=== PATIENT | female | born 1955 | race Two or more races ===

== ENCOUNTER 2016-09-29 13:32 | Inpatient (IN) | payer SELFPAY ==
[~2016-09-29] VITALS: Ht 160 cm; Wt 79.1 kg
--- NOTE | ~2016-09-29 | CON ---
PATIENT'S NAME: JOSEPH [facility]BOLD - [facility] AGE: 61 Y [address] ROOM: [place] [address] LOCATION: [facility] [place] ADMIT DATE: 09/29/2016 Consultation DISCHARGE DATE: FAMILY PHYSICIAN: PHYSICIAN, UNKNOWN ATTENDING PHYSICIAN: ELVIS GAMBOA DATE OF CONSULTATION: 10/03/2016 REFERRING PHYSICIAN: Misael Tovar MD HISTORY OF PRESENT ILLNESS: Saw this 61-year-old female in the hospital today. She was complaining of neck pain with right shoulder pain with the neck pain radiating down the right upper extremity to involve all the fingers and the right hand. In addition, she also complains of some burning sensation in the right thigh and she has had this now for a month without any definite precipitating factor and she has the occasional low back pain and she also complained of weakness in the right upper extremity. In addition to the weakness, she also complains of numbness in the right upper extremity involving the entire right upper limb and this has also been going on now for a month. There was no definite history of trauma to precipitate this. She was primarily admitted for abdominal pain and she has had a dose before this. Relevant portion of a past medical history, she is diabetic type 2. She also complains of tingling down the right upper extremity. She has no symptoms on the left side. PAST MEDICAL HISTORY: History of essential hypertension and type 2 diabetes. SOCIAL HISTORY: She stopped smoking 10 years ago. ALLERGIES: NO KNOWN ALLERGIES TO MEDICATION. MEDICATIONS: See the list in the chart. FAMILY HISTORY: Mother is diabetic. PHYSICAL EXAMINATION: GENERAL: On examination in the hospital, this is a 61-year-old lady, who was awake. She is alert. She is very uncomfortable because of the pain in her neck. VITAL SIGNS: She is 5 feet 3 inches tall, 79.1 kg weight. Her blood pressure was 151/91, pulse was 80 was regular, respirations are 20, temperature 98.1. PATIENT'S NAME: JOSEPH [facility] AGE: 61 Y [address] ROOM: [place] [address] LOCATION: [facility] [place] ADMIT DATE: 09/29/2016 Consultation DISCHARGE DATE: FAMILY PHYSICIAN: PHYSICIAN, UNKNOWN ATTENDING PHYSICIAN: ELVIS GAMBOA HEENT: She is normocephalic. NECK: There was tenderness on palpating cervical spinous process about the C6- C7 level. There was restriction of extension of the cervical spine, has no restriction of flexion. There was severe tenderness on palpating the trapezius muscle on the right side. No tenderness on the left. There were no masses palpable in the neck. No bruits audible in the neck. CHEST: Clear. HEART: Heart rate was regular. The heart sounds were normal. ABDOMEN: Soft. No area of tenderness. Bowel sounds were normal. NEUROLOGIC: The cranial nerve examination was normal. The motor examination showed weakness of the right hand vmware administrator. The sensory exam shows decreased sensation on the right side, not restricted to any definite dermatomal pattern. In the right lower limb, there was decreased sensation in the lateral aspect of the right thigh as well as the medial aspect of the right leg. Reflexes were diminished in the upper extremity 1+ on either side but symmetrical in the lower extremities. I could not get any reflexes. The knee jerks and the ankle jerks were absent. Toes were downgoing. BACK: There was no tenderness on palpating the lumbar spinous processes and the SI joints. IMAGING: I reviewed the MRI of the cervical spine, which was done, it shows evidence of severe cervical spinal stenosis from C2-C7 and extremity examination, there was tenderness on palpating the anterior aspect of the right shoulder. There was also pain with abduction, flexion, and extension of the right shoulder. IMPRESSION: 1. Cervical radiculopathy. It is difficult to be sure what nerve roots specifically are involved. My thought will be probably the C6 and C7 nerve roots on the right side. In addition to that, I think she might have osteoarthritis of the right shoulder or some form of entrapment syndrome in the right shoulder. 2. She may have carpal tunnel syndrome on the right side as well as the Tinel sign was positive at the wrist on the right side and she has cervical spinal stenosis at C2-C7. She will definitely need to have a spinal canal decompressed and the weakness that she is having especially the hand vmware administrator may be related to stenosis of the spinal canal. I did not see any evidence of myelomalacia on reviewing the MRI of the cervical spinal canal. My recommendation here is that we should get EMG nerve conduction studies done on her to see if she has any electrophysiological evidence of nerve root compression. This will assist us in deciding whether to go from the front or behind if there is evidence of a radiculopathy, then she may benefit more as I was going from in front and decompressing the nerve root and also distracting the disk space that was creating more room from front. The other alternative here would be to go ahead and for sure do a decompressive cervical laminectomy from C2 to C7 PATIENT'S NAME: MONIQUE RUIZ [facility] AGE: 61 Y [address] ROOM: [id number] [place], [place] [address] LOCATION: [facility] [place] ADMIT DATE: 09/29/2016 Consultation DISCHARGE DATE: FAMILY PHYSICIAN: PHYSICIAN, UNKNOWN ATTENDING PHYSICIAN: ELVIS GAMBOA and it is also possible that doing this, we could also decompress the nerve root on the right side by doing a foraminotomy on the right. This was explained to her through the receiver stocker along with the procedures and the possible complications that can occur with either procedure. For now, we will see what the EMG studies show. I also took the liberty to have Dr. Alvarenga see her for a right shoulder. MD JOSHUA OJEDA/farrah /[id number] d: 10/03/162018 t: 10/12/16 1205, CONSULTATION REPORT
--- NOTE | ~2016-09-29 | OR ---
PATIENT'S NAME: MONIQUE RUZI [facility] AGE: 61 Y [address] ROOM: [place] [address] [place] [facility] [place]: 09/29/2016 OR/Procedure Report DISCHARGE DATE: FAMILY PHYSICIAN: PHYSICIAN, UNKNOWN ATTENDING PHYSICIAN: ELVIS GAMBOA SURGEON: Esteban Davidson MD LEMON PICKER: DATE OF PROCEDURE: 09/30/2016 ADDENDUM: Procedure performed is around 12:30 p.m. in the morning. This is an addendum to the procedure report from [facility]. The patient's CBD was freely cannulated at the first attempt within seconds. There was incidental retrograde filling of the pancreatic duct. The pancreatic duct was not cannulated or injected by intent. The pancreatic duct appeared to be normal. The CBD was significantly dilated but did not appear to have any filling defects. However in view of the significant dilation and pain, sphincterotomy and CBD clearance done. ESTEBAN DAVIDSON MD AAN/modl /[id number] d: 10/01/16 0444 t: 10/01/16 1646, OPERATIVE SUMMARY
--- NOTE | ~2016-09-29 | HP ---
PATIENT'S NAME: JOSEPH [facility] AGE: 61 Y [address] ROOM: [place] [address] LOCATION: [facility] [place] ADMIT DATE: 09/29/2016 History & Physical DISCHARGE DATE: FAMILY PHYSICIAN: PHYSICIAN, UNKNOWN ATTENDING PHYSICIAN: ELVIS GAMBOA DATE OF SERVICE: CHIEF COMPLAINT: Abdominal pain. HISTORY OF PRESENT ILLNESS: A 61-year-old lady with a past medical history of essential hypertension, type 2 diabetes, appendectomy, as well as cholecystectomy, who presented to the emergency department today with a right upper quadrant pain which has been going on for weeks now, cannot characterize the pain, present all the time, elevated with food intake, progressively got worse associated with nausea, but no episode of emesis. She denied having any fever or chills. She also complained of having pain in her shoulder as well. She denied any shortness of breath, any PND, or any dyspnea. She endorsed having constipation and difficulty urination, but denied having any burning on urination. REVIEW OF SYSTEMS: All other systems reviewed and were negative except what is mentioned in the HPI. ALLERGIES: NO KNOWN DRUG ALLERGIES. PAST MEDICAL HISTORY: Essential hypertension and type 2 diabetes. MEDICATIONS: Please see MAR. SOCIAL HISTORY: Quit smoking 10 years ago. FAMILY HISTORY: Mother had diabetes. PHYSICAL EXAMINATION: VITAL SIGNS: Blood pressure 125/76, 89, 19, 96, afebrile. GENERAL: No acute distress. Alert, oriented x3. HEENT: Head: Atraumatic, normocephalic. Eyes: Nonicteric. No pallor. PATIENT'S NAME: JOSEPH [facility] AGE: 61 Y [address] ROOM: [address] [address] LOCATION: [facility] [place] ADMIT DATE: 09/29/2016 History & Physical DISCHARGE DATE: FAMILY PHYSICIAN: PHYSICIAN, UNKNOWN ATTENDING PHYSICIAN: ELVIS GAMBOA Oropharynx: Dry mucous membranes. CARDIOVASCULAR: S1 and S2. No murmurs, gallops, or rubs. LUNGS: Clear to auscultation bilaterally. ABDOMEN: Soft, tender in the right upper quadrant. Bowel sounds are present. No rebound tenderness or guarding noted. EXTREMITIES: No clubbing, cyanosis, or edema. NEUROLOGIC: Cranial nerves 2 through 12 intact. No motor or sensory deficit. PSYCH: Normal affect, mood, and speech. SKIN: No bruises or rashes noted. MUSCULOSKELETAL: No muscle tenderness or swelling noted. DIAGNOSTIC DATA: CAT scan done in the emergency department per verbal report showed some biliary dilatation. I do not have exact measurement at this point. Lab work in the emergency department showed 2 sets of negative troponins. Lactate was 2.3. CBC was unremarkable. BMP showed potassium of 3.6, alkaline phosphatase is elevated at 156, AST and ALT 66 and 70, bilirubin was normal. UA was not impressive for any urinary tract infection. ASSESSMENT AND PLAN: 1. Biliary obstruction. 2. Essential hypertension. 3. Type 2 diabetes mellitus. 4. Hypokalemia. We are going to admit this patient to the PCU. MRCP will be ordered. She is going to be n.p.o. Intravenous volume resuscitation. Based on the results of the MRCP, GI consultation will be made. We will repeat the labs in the morning. Pain control. Sliding scale insulin for diabetes control and IV antihypertensives if needed. The patient is full code. MD KENIA VERGARA/farrah /[id number] D: T: 514 HISTORY & PHYSICAL
--- NOTE | ~2016-09-29 | CON ---
PATIENT'S NAME: MONIQUE RUIZ [facility] AGE: 61 Y [address] ROOM: [place] [address] LOCATION: [facility] [place] ADMIT DATE: 09/29/2016 Consultation DISCHARGE DATE: FAMILY PHYSICIAN: PHYSICIAN, UNKNOWN ATTENDING PHYSICIAN: ELVIS GAMBOA DATE OF CONSULTATION: 09/30/2016 REFERRING PHYSICIAN: Esteban Davidson MD REASON FOR CONSULTATION: Possible biliary obstruction and dilated CBD. HISTORY OF PRESENT ILLNESS: This is a very pleasant, Algerian-speaking 61-year-old female, who was seen utilizing the electrical systems drafter language line. The patient has a past medical history of essential hypertension, type 2 diabetes, as well as a cholecystectomy in 2013. She states that over the past 3 to 4 weeks, she began having significant right upper quadrant pain as well as generalized discomfort on her right side. She does state that she had associated nausea with this. Denies any vomiting, fever, or chills. She does recall having stones within her gallbladder at the time of removal. She denies any shortness of breath, chest pain, chest pressure, urinary symptoms, or change in bowel habits. PAST MEDICAL HISTORY: Essential hypertension and type 2 diabetes. PAST SURGICAL HISTORY: Cholecystectomy, appendectomy, and back surgery in 2009. SOCIAL HISTORY: The patient quit smoking approximately 10 years ago. She denies any alcohol use. FAMILY HISTORY: The patient's mother has diabetes. Sister has brain cancer and another sister has liver cancer. She also endorses that her mother had liver cirrhosis and cancer of unknown type. ALLERGIES: NO KNOWN MEDICATION ALLERGIES. CURRENT MEDICATIONS: Please refer to the medication administration record. PATIENT'S NAME: MONIQUE RUIZ [facility] AGE: 61 Y [address] ROOM: [place] [id number] LOCATION: [facility] [place] ADMIT DATE: 09/29/2016 Consultation DISCHARGE DATE: FAMILY PHYSICIAN: PHYSICIAN, UNKNOWN ATTENDING PHYSICIAN: ELVIS GAMBOA A REVIEW OF SYSTEMS: A 10-point review of systems was completed. All were negative except for those identified in the history of present illness. PHYSICAL EXAMINATION: GENERAL: A very pleasant 61-year-old female, sitting in the chair, who appears to be in no acute distress. VITAL SIGNS: Temperature 97.9, pulse is 72, respirations of 18, blood pressure 149/84, and oxygen saturation is 96% on room air. SKIN: [place], warm, and dry. No jaundice. HEENT: Head is normocephalic and atraumatic. Pupils are equal, round, and reactive to light. Sclerae are clear. Nonicteric. Oral mucosa is pink and moist. No thyromegaly. NECK: Soft and supple. CARDIOVASCULAR: Regular normal S1, S2. RESPIRATORY: Respirations even and unlabored. LUNGS: Clear to auscultation. ABDOMEN: Soft, round, tender in the right upper quadrant with palpation as well as the right lower quadrant. No rebound, rigidity, or guarding noted. Bowel sounds positive x4 quadrants. MUSCULOSKELETAL: No muscle weakness or atrophy. EXTREMITIES: No clubbing, cyanosis, or edema. NEUROLOGICAL: Nonfocal. LABS AND DIAGNOSTICS: Lactate on admission was 2.3. Cardiac enzymes have all been within normal limits. CBC includes a white blood cell count of 4.5, hemoglobin of 13.8, hematocrit of 38.6, and platelets of 155. Chemistry panel includes a glucose of 148, BUN of 12, creatinine 0.5, sodium of 141, potassium 3.7, chloride 106, CO2 of 26, albumin of 3.5. AST elevated on admission at 70 and now 63, ALT was 66 and now 59, alkaline phosphatase was elevated at 156 now 112, total bilirubin is 0.9. Hemoglobin A1c is 8.2. Protime 10.8, INR is 1.0. PTT of 26. Lipase was 181. She also underwent a CT abdomen and pelvis on admission. This did show a dilated common bile duct at 13 mm with no definitive intraductal filling defect identified, fatty infiltration of the liver, cholecystectomy, bilateral renal cysts as well as suspected constipation. MRCP is pending at this time. ASSESSMENT AND PLAN: Again this is a very pleasant, 61-year-old Algerian-speaking female, who was admitted with approximate 3-week complaint of right upper quadrant discomfort. The patient is post cholecystectomy with known stones per her recollection. Her ALT was slightly elevated on admission, as well. At this time, a CT did show a dilated common bile duct with no definitive intraductal filling PATIENT'S NAME: MONIQUE RUIZ [facility] AGE: 61 Y [address] ROOM: [id number] [place], [place] [address] LOCATION: [facility] [place] ADMIT DATE: 09/29/2016 Consultation DISCHARGE DATE: FAMILY PHYSICIAN: PHYSICIAN, UNKNOWN ATTENDING PHYSICIAN: ELVIS GAMBOA. The patient has undergone an MRCP. As the results are pending at this time, the patient will be kept n.p.o. in preparation for review of MRCP with possible ERCP later today. This was discussed again with the patient and she verbalizes understanding. Further recommendations to be given status post results of MRCP. Thank you for this consult and allowing us to participate in the care of this patient. We will continue to monitor, evaluate, and treat as appropriate. MAN MANLEY APRN FOR ESTEBAN DAVIDSON MD MMF/modl /[id number] d: 09/30/16 1520 t: 10/07/16 1644, CONSULTATION REPORT
--- NOTE | ~2016-09-29 | NDGEN ---
PATIENT'S NAME: MONIQUE RUIZ [facility] AGE: 61 Y [address] ROOM: [address] [address] LOCATION: [facility] [place] ADMIT DATE: 09/29/2016 Neurodiagnostics DISCHARGE DATE: FAMILY PHYSICIAN: PHYSICIAN, UNKNOWN ATTENDING PHYSICIAN: ELVIS GAMBOA PROCEDURE: EMG NERVE CONDUCTION STUDY OF THE BILATERAL UPPER EXTREMITIES. DATE OF PROCEDURE: 10/04/2016 REQUESTING PHYSICIAN: Dr. Nicholson, neurosurgeon. FINDINGS: This is a 61-year-old female patient who has pain in the right upper extremity with particular focal pain at the area of the glenohumeral joint region where she has some exquisite tenderness to touch. She has limitation in movement of the arm in general. It was believed that she may have C7 radiculopathy that would involve weakness of the triceps and extensor muscles of the forearm. Furthermore, this nerve conduction study was done to rule out any evidence of median neuropathy at both wrists or any focal neuropathy of the bilateral upper extremities. Nerve conduction studies were performed stimulating the left and right median and ulnar nerves as well as the sensory median and ulnar nerves. The motor and nerve conduction studies revealed normal motor onset latencies, durations, and amplitudes as well as nerve conduction velocities in the median and ulnar nerves. In the sensory nerve conduction studies, there was normal peak onset latencies, amplitudes, as well as nerve conduction velocities. The F-wave studies of the median and ulnar nerves in the upper extremities were also within normal limits. Next, the needle EMG was placed into the right upper extremity muscles including deltoid, extensor carpi radialis, pronator teres, abductor digiti minimi, abductor pollicis brevis, first dorsal interossei muscle, biceps brachii, and triceps brachii as well as the cervical paraspinal muscles, particularly around the C6-C7 region. In the needle EMG, there was no evidence of any abnormal spontaneous electrical activity such as fibrillation potentials or positive sharp waves. On voluntary recruitment of the muscles just mentioned, there was normal motor unit action potential recruitment pattern; however, there was some diminished activation of these muscles due to the patient having some general pain at the glenohumeral joint. The motor units were showing normal sizes with no evidence of any polyphasia. IMPRESSION: The nerve conduction studies of the bilateral upper extremities were within normal limits. Needle EMG of the right upper extremity did not PATIENT'S NAME: MONIQUE RUIZ [facility] AGE: 61 Y [address] ROOM: [address] [address] LOCATION: [facility] [place] ADMIT DATE: 09/29/2016 Neurodiagnostics DISCHARGE DATE: FAMILY PHYSICIAN: PHYSICIAN, UNKNOWN ATTENDING PHYSICIAN: ELVIS GAMOBA reveal evidence to support cervical radiculopathy. There was diminished activation of the muscles tested. This was due to the subject's pain at the area of the shoulder, particularly at the area of the glenohumeral joint below the clavicle. This did not limit testing, and we were able to get a good study that revealed normal recruitment of motor unit action potential for the applied force. MD WILBER KNIGHT/farrah /[id number] dtt: 10/22/16 1315 , CLAYTON OWEN dtd: 10/04/16 1706
--- NOTE | ~2016-09-29 | ER ---
PATIENT'S NAME: [facility]SEPH [facility] AGE: 61 Y [address] ROOM: [place] [address] [place] [facility] [place]: 09/29/2016 ER/Outpatient Report DISCHARGE DATE: FAMILY PHYSICIAN: PHYSICIAN, UNKNOWN ATTENDING PHYSICIAN: ELVIS GONZALEZ Time of Arrival: 1332 hours. Time of Evaluation: 1338 hours. CHIEF COMPLAINT: Right upper quadrant abdominal pain. HISTORY OF PRESENT ILLNESS: The patient is a 61-year-old female, who presents to the emergency department today with chief complaint of right upper quadrant abdominal pain. She reports this started 24 hours prior to arrival. The patient is a Portuguese- speaking patient, MARTTI was used for interpretation. Pain is increased today. She took some Tylenol without any relief. She does report some nausea with no vomiting. Does report some shortness of breath. Denies any diaphoresis. Has had some decreased appetite. Does have increased pain with food. It is a stabbing type pain, currently 9/10 in severity. PAST MEDICAL HISTORY: [id number] diabetes, hypertension, and dyslipidemia. PAST SURGICAL HISTORY: Appendectomy, back surgery, and cholecystectomy. SOCIAL HISTORY: The patient denies any tobacco, alcohol, or illicit drug use. ALLERGIES: NO KNOWN DRUG ALLERGIES. MEDICATIONS: Please see list. PRIMARY CARE DOCTOR: [facility]. REVIEW OF SYSTEMS: All systems are reviewed by myself and are negative with the exception of those discussed in the HPI and past medical history. PHYSICAL EXAMINATION: PATIENT'S NAME: [facility]PH [facility] AGE: 61 Y [address] ROOM: [place] [id number] [place] [facility] [place]: 09/29/2016 ER/Outpatient Report DISCHARGE DATE: FAMILY PHYSICIAN: PHYSICIAN, UNKNOWN ATTENDING PHYSICIAN: ELVIS GONZALEZ VITAL SIGNS: Weight 79.1 kg. Blood pressure 180/100, pulse 89, respiratory rate 19, temperature 98.3, and oxygen saturation 96% on room air. GENERAL: The patient is a 61-year-old female, who appears at her stated age, in mild acute distress secondary to right upper quadrant abdominal pain. HEENT: Normocephalic, atraumatic. Pupils are equal, round, and reactive to light and accommodation. Extraocular motions are intact. Nares are patent bilaterally. TMs are clear. Oropharynx is clear. NECK: Supple. There is no nuchal rigidity. CARDIOVASCULAR: Regular rate and rhythm. No murmurs, rubs, or gallops. LUNGS: Clear to auscultation bilaterally. No wheezes, rales, or rhonchi. ABDOMEN: Soft with moderate right upper quadrant tenderness to palpation. There is voluntary guarding. There is no rebound or rigidity. Positive bowel sounds. MUSCULOSKELETAL: The patient moves all 4 extremities. SKIN: Warm and dry. There are no rashes or lesions noted. LABORATORY DATA AND X-RAYS: CBC is unremarkable. Coags are normal. Lipase is normal. Urinalysis shows 25 leukocyte esterase; 30 protein; 100 glucose; 4 urobilinogen; 25 blood; 0 to 2 wbc's, rbc's, and epithelials. Lactase is 2.3. EKG is obtained, it is interpreted by myself and shows sinus rhythm with a rate of 84, normal axis, normal interval. No ST elevation, ST depression, or T-wave inversions. CMP is unremarkable except for potassium 3.6, glucose 212, alkaline phosphatase 156, AST is 70, ALT is normal. Cardiac enzymes are normal. Procalcitonin is normal. CT scan of the abdomen and pelvis with IV contrast was obtained. I have discussed results with the radiologist, which does show a common bile duct dilatation. There is no obvious stone in the duct. There is some mild constipation. There is no other acute process noted. IMPRESSION: 1. Acute biliary obstruction with dilation of the common bile duct. 2. Mild constipation. 3. Type 2 diabetes mellitus. 4. Initial visit. EMERGENCY DEPARTMENT COURSE: The patient is brought back to the examination room. Seen and evaluated by myself. IV is established. Laboratory analysis and imaging are obtained as described above. The patient is given Zofran 4 mg. She is given multiple aliquots of 2 mg of morphine IV. She is also given 40 mg of Protonix IV and a GI cocktail. She is given a liter of normal saline. I have discussed results with the patient. I would recommend admission to the hospital for further evaluation, treatment, and management. I have contacted Dr. Gonzalez with Hospitalist Service. He had seen and evaluated the patient down here in the Emergency Department and did order the Protonix and a GI cocktail. I have PATIENT'S NAME: MONIQUE RUIZ [facility] AGE: 61 Y [address] ROOM: [place] [address] [place] [facility] [place]: 09/29/2016 ER/Outpatient Report DISCHARGE DATE: FAMILY PHYSICIAN: PHYSICIAN, UNKNOWN ATTENDING PHYSICIAN: ELVIS GONZALEZ also discussed the case with Dr. Tovar with GI; he has recommended MRCP. I have discussed this with Dr. Gonzalez. DISPOSITION: The patient is admitted under the care of Hospitalist Service, Dr. Gonzalez in stable condition. DO BLADIMIR VALDES/modl /[id number] d: 09/30/16 0930 t: 10/01/16 0755, OUTPATIENT REPORT
--- NOTE | ~2016-09-29 | CON ---
PATIENT'S NAME: JOSEPH [facility] AGE: 61 Y [address] ROOM: [place] [address] LOCATION: [facility] [place] ADMIT DATE: 09/29/2016 Consultation DISCHARGE DATE: 10/04/2016 FAMILY PHYSICIAN: Physician, Unknown ATTENDING PHYSICIAN: Bina Gonzalez DATE OF CONSULTATION: 10/03/2016 REFERRING PHYSICIAN: Misael Tovar MD The patient was seen and examined on October 03, 2016. CHIEF COMPLAINT: Right shoulder pain. HISTORY OF PRESENT ILLNESS: This 61-year-old female was referred for evaluation by Dr. Nicholson because of right shoulder pain. Pain is dull and achy, it has bothered her for about a month, radiates out of the deltoid. She also has some neck problems, has some bulging disks and arthritis in her neck, has been followed by Dr. Nicholson. She has also been recovering from biliary obstruction, mild constipation, and diabetes. She has never had surgery, fracture, or infection in the shoulder. Keeps her up at night, hurts to reach. She says it feels weaker and she has lost some motion in it. Tylenol helps the pain. She denies radicular symptoms in her arm. No numbness or tingling. PAST MEDICAL HISTORY: Type 2 diabetes and hypertension. PAST SURGICAL HISTORY: Cholecystectomy, appendectomy, and lumbar spine surgery. MEDICATIONS: 1. Cozaar. 2. Glucophage. 3. Levemir insulin. 4. Mevacor. 5. Neurontin. 6. Xanax. ALLERGIES: NONE. SOCIAL HISTORY: Quit smoking 10 years ago. No alcohol use. PATIENT'S NAME: JOSEPH [facility] AGE: 61 Y [address] ROOM: [place] [id number] LOCATION: [facility] [place] ADMIT DATE: 09/29/2016 Consultation DISCHARGE DATE: 10/04/2016 FAMILY PHYSICIAN: Physician, Unknown ATTENDING PHYSICIAN: Bina Gonzalez FAMILY HISTORY: Mother with diabetes. Sister with brain cancer and another sister with liver cancer. History of liver cirrhosis and cancer in mother. REVIEW OF SYSTEMS: Constipation. No coughs, colds, fevers, chills, or sore throat. No chest pain, shortness of breath, or trouble with breathing. No nausea. Occasional vomiting. No dysuria or hematuria. No malaise. No skin or neurologic changes. PHYSICAL EXAMINATION: GENERAL: She is awake, alert, and oriented x3. Mood and affect appropriate. She is sitting in a chair. VITAL SIGNS: Temperature 98, pulse 74, respirations 18, blood pressure 149/82, and O2 saturations 96% on room air. HEENT: Atraumatic and normocephalic. PERRL. EOMI. TMs clear. Throat clear. NECK: Supple. CHEST: Clear to auscultation. HEART: Regular rhythm. ABDOMEN: Soft. Mildly tender. Normoactive bowel sounds. EXTREMITIES: Right shoulder is tender at the AC and subacromial area. There is positive impingement sign. Slight prominence of the AC joint. She abducts and flexes 140 degrees. Externally and internally rotates 70 degrees with pain. She is a little weak in abduction and flexion related the pain. There is no warmth or redness, but a trace of swelling. No ecchymosis. Neck moves well. Spurling sign is negative. She is tender in the cervical spine, has some pain with neck movement. She has good pulses and good reflexes. DIAGNOSTIC DATA: X-rays of her right shoulder AP, lateral, and oblique view show an intact glenohumeral joint without fractures or degenerative changes. Joint space is well preserved. AC joint shows sclerosis and osteophytes. Diagnosis; acromioclavicular arthritis, right shoulder. IMPRESSION: 1. Impingement of acromioclavicular arthritis, possible small cuff tear of right shoulder with fairly good motion, quite painful. 2. Hypertension. 3. Insulin-dependent diabetes. 4. Dyslipidemia. 5. Abdominal pain. PATIENT'S NAME: MONIQUE RUIZ [facility] AGE: 61 Y [address] ROOM: [place] [address] LOCATION: [facility] [place] ADMIT DATE: 09/29/2016 Consultation DISCHARGE DATE: 10/04/2016 FAMILY PHYSICIAN: Physician, Unknown ATTENDING PHYSICIAN: Bina Gonzalez PLAN: Her risks and benefits discussed. Right shoulder was injected into the subacromial space and glenohumeral joint with 80 mg Depo-Medrol, 5 mL of lidocaine. She was given exercises. We will follow her along. Encourage movement of the shoulder. MD DONN NIEVES/farrah /[id number] d: 10/04/168 t: 10/09/16 1025, CONSULTATION REPORT
--- NOTE | ~2016-09-29 | DS ---
PATIENT'S NAME: MONIQUE RUIZ [facility] AGE: 61 Y [address] ROOM: [id number] [place], [place] [address] LOCATION: [facility] [place] ADMIT DATE: 09/29/2016 Discharge Summary DISCHARGE DATE: FAMILY PHYSICIAN: Physician, Unknown ATTENDING PHYSICIAN: Bina Gonzalez PRINCIPAL DIAGNOSES: 1. Biliary dilatation. 2. Degenerative joint disease of C-spine, complicated by pain in the neck. 3. Osteoarthritis of shoulder and hands. 4. Type 2 diabetes mellitus, uncontrolled. 5. Hypertension. HOSPITAL COURSE: A 61-year-old lady with a past medical history of essential hypertension as well as type 2 diabetes non-insulin, glipizide and metformin control. She was admitted to the hospital with abdominal pain. On initial evaluation, a CAT scan was done, which did show evidence of biliary dilatation which was followed by MRCP. It did not show any stone, but did show evidence of liver cirrhosis. GI consultation was made and the patient was taken for ERCP with no stone, but the biliary stent was placed. Her lab on initial admission to the hospital were normal including hepatic function and which remained normal during the course of the hospitalization. Her abdominal pain improved, but she kept complaining of the pain in her right shoulder as well as the right arm. Cervical spine CT scan was obtained, which did show extensive degenerative joint disease. Neurosurgical consultation was made and an MRI was also done. Neurosurgery evaluated the patient and ordered an EMG, which returned negative. They think that she will need surgery down the road and wanted her to see back in 2 weeks in the clinic. Orthopedic consultation was made and right shoulder was injected with lidocaine as well as steroids. She was started on Celebrex to control the pain. In addition to that, we also started on gabapentin 200 mg t.i.d., which was then titrated up to 400 mg t.i.d. on discharge. Her blood glucose level has been uncontrolled in the hospital despite using Levemir. She will be discharged on glipizide 10 mg and metformin. She will need to follow up with the primary care physician for that followup. DISCHARGE MEDICATION: Include: 1. Alprazolam 0.5 mg p.o. twice daily. 2. Celebrex 200 mg p.o. twice daily. 3. Gabapentin 400 mg p.o. 3 times daily. 4. Losartan potassium 25 mg p.o. every day. 5. Lovastatin 20 mg p.o. every night at bedtime. 6. Metformin 500 mg p.o. twice daily. ACTIVITY: As tolerated. PATIENT'S NAME: MONIQUE RUIZ [facility] AGE: 61 Y [address] ROOM: [place] [address] LOCATION: [facility] [place] ADMIT DATE: 09/29/2016 Discharge Summary DISCHARGE DATE: FAMILY PHYSICIAN: Physician, Unknown ATTENDING PHYSICIAN: Bina Gonzalez DIET: Diabetic diet. FOLLOWUP: 1. Follow up with Dr. Tovar in 2 weeks for ERCP and stent removal. 2. Follow up with Dr. Nicholson in Neurosurgery Clinic in 2 weeks. She needs to follow up with primary care physician in 1 week with a BMP. I spent 40 minutes in discharge planning of this patient. MD KENIA VERGARA/farrah /[id number] d: 10/04/16 1241 t: 10/13/16 1949, DISCHARGE SUMMARY
[2016-09-29 14:04] LABS: BASOPHIL % 0.7 %; EOSINOPHIL # 0.1 K/uL (0.0-0.5); EOSINOPHIL % 1.3 %; HEMATOCRIT 42.7 % (33.0-46.0); HEMOGLOBIN 15.6 g/dL (10.0-15.0); IMMATURE GRANULOCYTE % 0.2 %; LYMPHOCYTE # 1.4 K/uL (0.8-4.0); LYMPHOCYTE % 26.1 %; MCH 31.6 pg (27.0-34.0); MCHC 36.5 gm/dL (32.0-36.5); MCV 86.6 fl (83.0-98.0); MONOCYTE # 0.5 K/uL (0.0-1.0); MONOCYTE % 9.1 %; MPV 10.4 fl (9.4-12.4); NEUTROPHIL # (ANC) 3.5 K/uL (1.8-7.8); NEUTROPHIL % 62.6 %; NRBC % 0 /100WBC (0-0.00); PLATELET COUNT 175 K/uL (150-450); RBC 4.93 M/uL (3.50-5.50); RDW-CV 12.9 % (11.9-14.6); WBC 5.5 K/uL (4.0-11.0)
[2016-09-29 14:08] LABS: BILIRUBIN URINE NEGATIVE (NEGATIVE); BLOOD URINE 25 /UL (NEGATIVE); COLOR URINE YELLOW (YELLOW); GLUCOSE URINE 100 mg/dL (NEGATIVE); KETONE URINE NEGATIVE (NEGATIVE); LEUKOCYTES URINE 25 /UL (NEGATIVE); NITRITE URINE NEGATIVE (NEGATIVE); PH URINE 6.5 (4.0-8.0); PROTEIN URINE 30 mg/dL (NEGATIVE); SPEC GRAVITY URINE 1.015 (1.003-1.035); TURBIDITY URINE CLEAR (CLEAR); UROBILINOGEN URINE 4 mg/dL (NORMAL)
[2016-09-29 14:16] LABS: PROTIME 10.8 SECONDS (9.6-11.1); PTT 26 SECONDS (25-32)
[2016-09-29 14:21] LABS: BACTERIA URINE RARE (NEGATIVE); EPITHELIAL URINE 0-2 #/HPF (NEGATIVE); MUCUS URINE 1+ (NEGATIVE); RBC URINE 0-2 #/HPF (NEGATIVE); WBC URINE 0-2 #/HPF (NEGATIVE)
[2016-09-29 14:32] LABS: ALBUMIN 4.2 gm/dL (3.5-5.0); ALK PHOS 156 IU/L (33-138); ALT 66 IU/L (12-78); ANION GAP 13.6 (10.0-19.0); AST 70 IU/L (10-40); BLOOD UREA NITROGEN 13 mg/dL (6-24); CALCIUM 8.8 mg/dL (8.5-10.5); CHLORIDE 104 mMol/L (96-110); CO2 25 mMol/L (22-32); CPK 164 IU/L (21-215); CREATININE 0.7 mg/dL (0.5-1.1); ESTIMATED GFR (MDRD EQUATION) > 60; MAGNESIUM 1.9 mg/dL (1.3-2.6); POTASSIUM 3.6 mMol/L (3.7-5.1); SODIUM 139 mMol/L (135-145); TOTAL BILIRUBIN 0.9 mg/dL (0.0-1.5); TOTAL PROTEIN 8.3 g/dL (6.0-8.4)
[2016-09-29 16:19] LABS: CPK 122 IU/L (21-215)
--- NOTE | 2016-09-30 00:44 | NUR ---
SIGNIFICANT EVENT: Patient alert & oriented. Hypertensive (upper 140's to 150's over 80's to 90's). Other VSS on RA. Morphine given in ER and again x1, last at 0045 for Abd pain. 1PA to BR. PIV to L) hand infusing LR at 125. MRCP this morning to determine presence/absence of stones, NPO since MN. ACHS accucheck - mild SS insulin. No coverage for HS BG of 134. Syriac speaking only - language line in room. Pleasant and cooperative with cares.
--- NOTE | 2016-09-30 02:00 | NUR ---
Patient is 61 year old female admitted for severe R) upper quadrant pain - started yesterday. ER started PIV to L) hand. 1 liter bolus of fluids in ER, LR started by ER - running at at 125. Full code. Burkinan speaking only - knows very little Frisian, Gwyn for admission assessment and Language line at bedside. MRCP scheduled for a.m. to determine presence/absence of stones. Diabetic - takes glipizide at home. Hx of back surgery and kimi, appendectomy, essential hypertension.
[2016-09-30 05:58] LABS: BASOPHIL % 0.4 %; EOSINOPHIL # 0.1 K/uL (0.0-0.5); EOSINOPHIL % 1.6 %; HEMATOCRIT 38.6 % (33.0-46.0); HEMOGLOBIN 13.8 g/dL (10.0-15.0); IMMATURE GRANULOCYTE % 0.2 %; LYMPHOCYTE # 1.2 K/uL (0.8-4.0); LYMPHOCYTE % 26.3 %; MCH 31.4 pg (27.0-34.0); MCHC 35.8 gm/dL (32.0-36.5); MCV 87.7 fl (83.0-98.0); MONOCYTE # 0.5 K/uL (0.0-1.0); MONOCYTE % 11.2 %; MPV 10.2 fl (9.4-12.4); NEUTROPHIL # (ANC) 2.7 K/uL (1.8-7.8); NEUTROPHIL % 60.3 %; NRBC % 0 /100WBC (0-0.00); PLATELET COUNT 155 K/uL (150-450); RDW-CV 12.9 % (11.9-14.6); WBC 4.5 K/uL (4.0-11.0)
[2016-09-30 06:11] LABS: ALBUMIN 3.5 gm/dL (3.5-5.0); ALK PHOS 112 IU/L (33-138); ALT 59 IU/L (12-78); ANION GAP 12.7 (10.0-19.0); AST 63 IU/L (10-40); BLOOD UREA NITROGEN 12 mg/dL (6-24); CALCIUM 8.7 mg/dL (8.5-10.5); CHLORIDE 106 mMol/L (96-110); CO2 26 mMol/L (22-32); CREATININE 0.5 mg/dL (0.5-1.1); ESTIMATED GFR (MDRD EQUATION) > 60; POTASSIUM 3.7 mMol/L (3.7-5.1); SODIUM 141 mMol/L (135-145); TOTAL BILIRUBIN 0.9 mg/dL (0.0-1.5); TOTAL PROTEIN 6.9 g/dL (6.0-8.4)
[2016-09-30] MEDS ORDERED: GLUCOTROL10 MG PO (08:58)
[2016-09-30] MEDS ORDERED: COZAAR25 MG PO (08:58)
[2016-09-30] MEDS ORDERED: GLUCOPHAGE500 MG PO (08:58)
[2016-09-30] MEDS ORDERED: LOVASTATIN10 MG PO (08:59)
--- NOTE | 2016-09-30 14:08 | NUR ---
[facility] note: 1000 Met with patient in room, CDE explained A1C of 8.2 % via language line teaching supervisor. At home patient is taking Metformin 500 mg BID and Glipizide 10 mg Daily. Blood sugars since admission ranging mostly 130-160, only on mild sliding scale Novolog here. Patient is provided with Diabetes Management Booklet in Bolivian and patient states that her daughter will be here later today to assist with completing Diabetes Survival Skills Assessment Form, when patient feels better. When returning in afternoon, patient is not present, gone for procudure out of room. Will continue to follow 10/01/16
--- NOTE | 2016-09-30 20:31 | NUR ---
Significant Event:MRCP early am, then ERCP at 1205, BP high after ERCP, 171/92 post ERCP, 1167 IV and IV KCL, ice chips & sips, dry heaving after ERCP when tried to get up to commode, has walked to BR and showered, very drowsy after ERCP, BS 154, 177, & 219-2 units given at 1730, Follow up:
--- NOTE | 2016-10-01 00:08 | NUR ---
Significant Event:Up to bathroom several times with standby assist. Reports having had a BM. Wears eye patch to right eye, as she says per language line, this eye is sensitive to the light. HS accucheck = 203 & given 2 units of Novalog insulin. 1911 had 50 mics of fentanyl with good results noted.
--- NOTE | 2016-10-01 05:07 | NUR ---
MCRP and ERCP yesterday showed esophageal varices. Speaks very little Georgian. 1 assist with gait belt and walker. Accuchecks ACHS. IV L hand. LR @ 125. Wears patch to left eye d/t light sensitivity. BM last night. Voiding well- ambulates to BR.
[2016-10-01 06:33] LABS: ALBUMIN 3.6 gm/dL (3.5-5.0); ALK PHOS 112 IU/L (33-138); ALT 58 IU/L (12-78); ANION GAP 13.5 (10.0-19.0); AST 52 IU/L (10-40); BLOOD UREA NITROGEN 8 mg/dL (6-24); CALCIUM 8.8 mg/dL (8.5-10.5); CHLORIDE 107 mMol/L (96-110); CO2 25 mMol/L (22-32); CREATININE 0.5 mg/dL (0.5-1.1); ESTIMATED GFR (MDRD EQUATION) > 60; POTASSIUM 3.5 mMol/L (3.7-5.1); SODIUM 142 mMol/L (135-145); TOTAL PROTEIN 7.1 g/dL (6.0-8.4)
[2016-10-01 07:37] LABS: CPK 79 IU/L (21-215)
--- NOTE | 2016-10-01 15:39 | NUR ---
Significant Event: Pt c/o left chest pain along with right upper quad pain this am. Used language line and pt states severe pain/pressure to left chest. BP 188/80 at that time. MD notified. Stat EKG and cardiac enzymes done, all normal. Gave fentanyl IV and MS IV with good relief. Impulsive, bed alarm on for safety. Denies chest pain rest of shift. Was a little nauseated this am, good relief with Zofran. New orders for Xanax 0.5mg PO BID, Ct of cervical spine, dc Fentanyl, Tramadol PRN. Up with 1 assist to br. Up in recliner x3. Refused lunch. Understands very little Ecuadorean. Follow up:
--- NOTE | 2016-10-02 04:36 | NUR ---
Significant Event: Patient alert and oriented X4. Up with stand by assist and walker. LR running at 125ml to L) hand. Tramadol given PRn for pain. Denies need at this time. GIven around 1930. Denies nausea. Understands some Guatemalan, language line at bedside. Family at bedside sometimes to help. Regular diet. ACHS accuchecks. Vitals stable and on room air. PRN labetolol if needed of SBP of 180. Follow up: Monitor pain
[2016-10-02 05:30] LABS: ALBUMIN 3.5 gm/dL (3.5-5.0); ALK PHOS 137 IU/L (33-138); ALT 49 IU/L (12-78); ANION GAP 11.7 (10.0-19.0); AST 38 IU/L (10-40); BLOOD UREA NITROGEN 8 mg/dL (6-24); CALCIUM 8.3 mg/dL (8.5-10.5); CHLORIDE 103 mMol/L (96-110); CO2 29 mMol/L (22-32); CREATININE 0.6 mg/dL (0.5-1.1); ESTIMATED GFR (MDRD EQUATION) > 60; POTASSIUM 3.7 mMol/L (3.7-5.1); SODIUM 140 mMol/L (135-145); TOTAL BILIRUBIN 0.8 mg/dL (0.0-1.5); TOTAL PROTEIN 7.1 g/dL (6.0-8.4)
--- NOTE | 2016-10-02 20:04 | NUR ---
Significant Event: PT WEARS A PATCH OVER RIGHT EYE AT TIMES PER HER COMFORT. 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 PT IS HAVING SOME DISCOMFORT IN RIGHT SHOULDER AND HIP. SHE WAS GIVEN ULTRAM AT 1359. A K-PAD WAS APPLIED TO SHOULDER WITH SOME RELIEF VERBALIZED. PT HAS AN IV IN HER LEFT HAND. SHE AMBULATED TO THE BATHROOM WITH 1 ASSIST. SHE DID C/O ABDOMINAL PAIN AND WAS GIVEN ZOFRAN. SHE WAS GIVEN 1MG OF ATIVAN IV PRIOR TO MRI SCAN OF C-SPINE. DR. BURTON WAS CONSULTED TODAY.
--- NOTE | 2016-10-03 03:22 | NUR ---
Significant Event: pt alert and oriented x3. cooperative with cares. SBA. New IV in right forarm. LR @125. VSS. RA. denies SOB. complaints of abdominal pain after eating dinner. Ultram given with some relief. K-pad also help relieve pain. pt states having 2 BM helped with pain aswell. slept on and off through out the shift. knows some namibian. language line at bedside. denies any nausea this shift. Follow up:
--- NOTE | 2016-10-03 14:01 | NUR ---
PT MOVED TO NO RISK W/ 75-100% ORAL INTAKE. WILL ASSIST NEEDED.
--- NOTE | 2016-10-03 14:09 | NUR ---
I have examined the student charting and find it acceptable. ANGEL Castano
--- NOTE | 2016-10-03 17:17 | NUR ---
Is A/O.Does know alittle Citizen Of [place].Language line in room.Has been amb with walker & 1 assist.Has SL Lt.hand & iv in Rt.back forearm. injected her Rt.shoulder this afternoon.Is to have EMG tomorrow.Will come get her around 0830.Pleasant.
[2016-10-04 04:59] LABS: BASOPHIL % 0.2 %; HEMOGLOBIN 15.1 g/dL (10.0-15.0); IMMATURE GRANULOCYTE # 0.1 K/uL (0.0-0.3); IMMATURE GRANULOCYTE % 0.9 %; LYMPHOCYTE # 0.7 K/uL (0.8-4.0); LYMPHOCYTE % 12.5 %; MCH 31.8 pg (27.0-34.0); MCHC 36.8 gm/dL (32.0-36.5); MCV 86.3 fl (83.0-98.0); MONOCYTE # 0.1 K/uL (0.0-1.0); MONOCYTE % 2.4 %; MPV 10.1 fl (9.4-12.4); NEUTROPHIL # (ANC) 4.8 K/uL (1.8-7.8); NRBC % 0 /100WBC (0-0.00); PLATELET COUNT 163 K/uL (150-450); RBC 4.75 M/uL (3.50-5.50); RDW-CV 12.8 % (11.9-14.6); WBC 5.7 K/uL (4.0-11.0)
[2016-10-04 05:14] LABS: ANION GAP 15.2 (10.0-19.0); BLOOD UREA NITROGEN 15 mg/dL (6-24); CALCIUM 9.7 mg/dL (8.5-10.5); CHLORIDE 101 mMol/L (96-110); CO2 25 mMol/L (22-32); CREATININE 0.8 mg/dL (0.5-1.1); ESTIMATED GFR (MDRD EQUATION) > 60; POTASSIUM 4.2 mMol/L (3.7-5.1); SODIUM 137 mMol/L (135-145)
--- NOTE | 2016-10-04 05:37 | NUR ---
Significant Event: Pt alert and oriented. Ambulated in ralph x 1 with SBA. Language line in room, however speaks some nepali. No prn's given for pain. Pt did use K-pad to right shoulder throughout the night. Slept in chair some of the night. EMG today at 0830. Follow up:
[2016-10-04] MEDS ORDERED: CELEBREX200 MG PO (13:55)
[2016-10-04] MEDS ORDERED: XANAX0.5 MG PO (13:55)
[2016-10-04] MEDS ORDERED: NEURONTIN400 MG PO (13:55)
--- NOTE | 2016-10-04 15:52 | NUR ---
SPOKE TO MONIQUE WITH HELP OF GLOVE STITCHER GAIL PATIENT IS ISRAELI SPEAKING. PATIENT IS BEING DISCHARGE HOME TODAY WITH HELP FROM HER DAUGHTER AT HOME.SHE IS PLANNING ON SEEING A DOCOTOR AT THE [facility]P [facility] I GAVE HER INFO ON [facility] AND ALSO A VOUTCHER FROM THE [place] [employer] TO ASSIT WITH MEDICATION.
--- NOTE | 2016-10-04 17:49 | NUR ---
Significant Event:Is A/O.Mostly arabic speaking.Had neuro test this AM.Had tramadol 50mg for bad BURGOS which did help.Has SL in Lt.had & upper Rt arm.Has been up with walker & 1 assist.Rt.shoulder alot better today. is to come in yet & inject her knee(permits signed),supplies & all in room.She then can go home.Some edema in Rt hand & fingers(arthritis). Follow up:
--- NOTE | 2016-10-04 18:14 | NUR ---
DISCHARGE: Pt. was explained discharge instructions through full time staff interpreter on the floor with virtual nurse. Educated on new medications: xanax, celebrex, and neurontin. Educated on carb counting and osteoarthritis. Filled out paper for [place] assistance and given discount card for medications. Will call and schedule own f/u at [facility]. Is scheduled with other providers and ERCP in 4 weeks. Patient and family verbalized understanding of teaching, no concerns. Patient is awaiting Dr. Alvarenga to inject R)knee before discharge. Family at bedside.
[2016-11-01] MEDS ORDERED: PRILOSEC20 MG PO (09:20)
== END 2016-10-04 20:15 | disposition disaster alternative care site (69) | DRG 446 ==
LOC: GMED 13:32 → GMSU 17:14
PROVIDERS: Emergency Medicine; Family Medicine; ADMIT Internal Medicine
DX: K83.1 Obstruction of bile duct (principal); K74.60 Unspecified cirrhosis of liver; E11.65 Type 2 diabetes mellitus with hyperglycemia; I10 Essential (primary) hypertension; E87.6 Hypokalemia; Z90.49 Acquired absence of other specified parts of digestive tract; M47.9 Spondylosis, unspecified; M19.011 Primary osteoarthritis, right shoulder; M19.032 Primary osteoarthritis, left wrist; M19.031 Primary osteoarthritis, right wrist
CPT/HCPCS: C1769; C9113; J0360; J0744; J1040; J1644; J2060; J2270; J2405; J3010; J3480; J7030; J7120; Q9967

== ENCOUNTER → 2016-10-18 | Outpatient (CLI) | payer SELFPAY ==
[~2016-10-18] MED LIST: CELEBREX200 MG PO; COZAAR25 MG PO; GLUCOPHAGE500 MG PO; GLUCOTROL10 MG PO; LOVASTATIN10 MG PO; NEURONTIN400 MG PO; PRILOSEC20 MG PO; XANAX0.5 MG PO
== END ==
LOC: LGSMG 17:29
DX: K76.0 Fatty (change of) liver, not elsewhere classified (principal)

== ENCOUNTER → 2016-11-01 | Day surgery (SDC) | payer SELFPAY ==
[~2016-11-01] VITALS: Ht 162.6 cm; Wt 77.4 kg
--- NOTE | ~2016-11-01 | OR ---
PATIENT'S NAME: MONIQUE RUIZ [facility] AGE: 61 Y [address] ROOM: [place] [address] LOCATION: [facility] ADMIT DATE: 11/01/2016 OR/Procedure Report DISCHARGE DATE: FAMILY PHYSICIAN: PHYSICIAN, UNKNOWN ATTENDING PHYSICIAN: ELVIS GAMBOA SURGEON: Amado Branch MD LINEN KEEPER: DATE OF PROCEDURE: 11/01/2016 PROCEDURE: Esophagogastroduodenoscopy with biliary stent removal. INDICATION: History of ERCP and stent placement. MEDICATIONS: Please see Anesthesiology record for details. CONSENT: The risks/benefits/alternatives were discussed and the patient or her power of associate attorney expressed understanding and agreed to proceed. Informed consent was obtained and placed in the chart. Time-out was completed prior to starting the procedure. PROCEDURE: Patient was placed in the left lateral decubitus position. One- lead EKG monitoring was used along with intermittent blood pressure monitoring and pulse oximetry. Bite block was placed in the patient's mouth. The above medications were given and titrated to response. Once adequate sedation was completed, the endoscope was passed through the patient's mouth into the posterior oropharynx. The endoscope was then passed into the esophagus, stomach and duodenal bulb. The duodenum was examined through the third portion. The endoscope was then withdrawn into the stomach. In the stomach, retroflexion was completed. The scope was then straightened and withdrawn from the patient. The patient tolerated the procedure well. There were no complications. SUMMARY OF FINDINGS: 1. Normal esophagus. 2. Portal gastropathy in the stomach. 3. Normal duodenum with previously placed biliary stent in good position. 4. A snare was used to grasp the stent and it was removed from the bile duct. The scope was then removed from the patient. ASSESSMENT AND PLAN: History of biliary stent: Biliary stent removed successfully today without complications. The patient does have some portal gastropathy-like changes in the stomach concerning for underlying chronic liver disease. I will recommend a daily PPI, as she seems to be experiencing some heartburn symptoms. She can follow up in clinic as needed. PATIENT'S NAME: MONIQUE RUIZ [facility] AGE: 61 Y [address] ROOM: [place] [address] LOCATION: [facility] ADMIT DATE: 11/01/2016 OR/Procedure Report DISCHARGE DATE: FAMILY PHYSICIAN: PHYSICIAN, ERIN ATTENDING PHYSICIAN: ELVIS GAMBOA J MD JOSE MONIQUE/modl /[id number] d: 11/01/16930 t: 12/06/16 0844, OPERATIVE SUMMARY
== END | disposition disaster alternative care site (69) ==
LOC: GPOC 10-28 14:00 → EDSTATUS 07:30 → GEND 07:42
PROC: 0DC68ZZ Extirpation of Matter from Stomach, Via Natural or Artificial Opening Endoscopic (ICD-10-PCS; principal; 2016-11-01)
DX: Z46.59 Encounter for fitting and adjustment of other gastrointestinal appliance and device (principal); K31.89 Other diseases of stomach and duodenum; I10 Essential (primary) hypertension; E11.9 Type 2 diabetes mellitus without complications; M19.90 Unspecified osteoarthritis, unspecified site; Z90.49 Acquired absence of other specified parts of digestive tract; Z98.890 Other specified postprocedural states
CPT/HCPCS: J7030